=== PATIENT | female | born 1955 | race Caucasian/White ===

== ENCOUNTER 2022-05-18 15:45 | Emergency (ER) | payer MEDICARE, MEDICAID, SELFPAY ==
[2022-05-18 16:00] VITALS: BP 151/106; PULSE 103; O2SAT 94
[2022-05-18 16:04] VITALS: BP 151/106; PULSE 102; RESP 18; TEMP 36.6; O2SAT 93; BMI 81.8
--- NOTE | 2022-05-18 16:54 | CRLHL7_ITS ---
For Patients: As a result of the Century Cures Act, medical imaging exams and procedure reports are released immediately into your electronic medical record. You may view this report before your referring provider. If you have questions, please contact your health care provider. INDICATION: Agitation, altered mental status TECHNIQUE: CT head without contrast. COMPARISON: 05/08/[address] FINDINGS: No acute intracranial hemorrhage, mass effect, or evidence for acute infarction extensive encephalomalacia in the right MCA distribution. Overlying cranioplasty. Paranasal sinuses and mastoid air cells are clear. IMPRESSION: No acute intracranial findings. No change. Extensive right hemispheric encephalomalacia in the MCA distribution. Please note that all CT scans at this facility use dose modulation, iterative reconstruction, and/or weight-based dosing when appropriate to reduce radiation dose to as low as reasonably achievable. Dictated by Gee Danielson MD @ 05/18/2022 6:35:33 PM (Electronically Signed)
--- NOTE | 2022-05-18 17:01 | ED.GENADULT ---
HPI - General Adult General Time Seen by Provider: 17:00 Date Seen: 05/18/22 Chief complaint: Altered Mental Status Stated complaint: DELUSIONS,AGITATION,NOW LETHARGY Time Seen by Provider: 05/18/22 15:48 Source: family and other ( on-call physician) History of Present Illness HPI narrative: 66-year-old female resident of [facility] at [address] [place] [address] presents with a 1 month decline in health status. Starting about 1 month ago staff and daughter reported that she has had a decline. She seems to have more confusion and forgetfulness. There was reports of her being disoriented and possibly delirious. She has fluctuating moods with episodes of crying and yelling. She has functional decline. Previously she was able to walk to very limited extent then she was able to stand and transfer and that has been lost to the point where she now really is not able to do that either. She was able to feed herself relatively independently but no longer can do that. Is now requiring staff to feed her. She seems quite tired and sleepy on a continuous basis. 3 years ago she had a stroke following mitral valve surgery. The stroke affected her right hemisphere in cause left hemiparesis. She had rehabilitation after that and did regain some ability to walk. Late this winter, about 3 years after her stroke she started having seizures. These have been difficult to control and she has been having frequent seizures until the last 2 weeks. She has probably not had a seizure since about May 01. Seizures are manifested by rapid blinking of her eyes primarily. She is not obviously been ill recently. Neurologic and behavioral issues noted above beyond those she has not had a cold, cough, fever, complaints of chest or abdominal pain. She does regularly complain of leg pain and she has been diagnosed with lower extremity neuropathy. She has begun a taper of her gabapentin recently. She was on tramadol last week it was stopped possibly s rcently as 4 days ago. She was on oxybutynin for urinary incontinence and that was stopped about the same time. She has been provided with p.r.n. oxycodone but apparently has not been not getting it regularly. She had a head CT scan done recently which showed no acute stroke. Related Data Previous Rx's Medication Instructions Recorded quetiapine 25 mg tablet (Seroquel) 25 mg PO BID PRN #60 tab 07/04/22 Allergies Allergy/AdvReac Type Severity Reaction Status Date / Time heparin Allergy Unknown Verified 05/18/22 17:50 Sulfa (Sulfonamide Allergy Unknown Verified 05/18/22 17:50 Antibiotics) Review of Systems Narrative: Patient is unable to communicate. She does sign and we do have a director of product design as well as her daughter and who all sign for her. She gives minimal answers to questions today. Primarily she reports that both of her legs are hurting and that she is very tired. Review of systems otherwise very limited and otherwise negative. [facility] Medical History Anxiety Aspiration pneumonia Atrial fibrillation Chronic kidney disease, stage 3 COPD (chronic obstructive pulmonary disease) Depression Generalized weakness Heart failure Hemiparesis affecting left side as late effect of cerebrovascular accident Heparin induced thrombocytopenia Hyperlipidemia Microcytic anemia Mitral regurgitation Mitral stenosis Mixed stress and urge urinary incontinence Obesity Obstructive sleep apnea Pulmonary embolism Seizure disorder as sequela of cerebrovascular accident Type 2 diabetes mellitus Surgical History (Updated 05/18/22 @ 17:15 by Luis Camarillo MD) H/O mitral valve replacement History of cholecystectomy History of cranioplasty History of gastric bypass History of hysterectomy History of repair of rotator cuff S/P balloon mitral valvuloplasty Social History (Updated 05/18/22 @ 17:22 by Luis Camarillo MD) Narrative: She currently lives at [address] They provide all of her medications and all of her cares. She is now unable to stand and transfer on her own. She is a former history of smoking. She does not drink alcohol. Smoking Status: Former smoker What tobacco products do you use: cigarettes Smoking quit date/years: >15 years ago Do you use any of these nicotine containing products: None Second hand tobacco smoke exposure: No How often do you have a drink containing alcohol: never How often do you have six or more drinks on one occasion: Never AUDIT-C Alcohol total score: 0 Non-prescribed substance use: denies use Exam Narrative: Exam Narrative: She is sitting in a chair. She signs and read sign language from her family and from the deaf interpreter. Head is without acute trauma. Eyes are normal. Pupils are equal round reactive to light. Extraocular movements are limited. She does not follow my finger all the way into the left visual field gaze. She is unable to cooperate with visual field testing. There is no dysconjugate gaze noted. There is no facial asymmetry. She appears to have no marked weakness. Oropharynx with dry mucous membranes. Small airway. Tongue is midline. Neck is supple without mass or adenopathy. Respirations are clear to auscultation without wheezing, rales, rhonchi. Breathing is unlabored. Cardiovascular: S1, S2, regular rate and rhythm. No murmur gallop or rub. Abdomen: Bowel sounds active. Abdomen is soft without tenderness or mass. Upper extremities with right upper extremity having relatively normal function in strength and motion. No obvious rigidity, tremor, dysmetria or weakness. Left upper extremity is nonfunctional. She older side. She does not squeeze fingers on command or otherwise voluntarily move her left upper extremity. Right lower extremity appears normal. She moves it quite well. She indicates no pain with palpation. Inspection shows no evidence of trauma. There is no erythema. She has intact pedal pulses. Left lower extremity is in a AFO brace. This is removed and the foot is and leg are inspected. There was no sign of trauma or infection. She has an intact pedal pulses. She does not voluntarily move her left lower extremity at the knee or ankle. She has some rigidity and it is somewhat difficult to get her AFO brace back on as she has a tendency to plantar flex. She has upgoing toe on the left and equivocal on the right. Const: Vital Signs, click to edit/add: Vital Signs - 24 hr 05/18/22 16:00 05/18/22 16:04 05/18/22 17:30 Temperature 97.9 F Pulse Rate [Pulse Oximeter] 103 H 102 H 107 H Respiratory Rate 18 Blood Pressure [Ri ght Upper Arm] 151/106 H 151/106 H 193/77 H Pulse Oximetry 94 93 96 05/18/22 17:45 Temperature Pulse Rate [Pulse Oximeter] 104 H Respiratory Rate Blood Pressure [Ri ght Upper Arm] 177/70 H Pulse Oximetry 94 Documenting provider has reviewed patient's vital signs: yes Course Vital Signs Vital signs: Initial Vital Signs Pulse Rate 103 H 05/18/22 16:00 Blood Pressure 151/106 H 05/18/22 16:00 Blood Pressure Mean 121 05/18/22 16:00 Blood Pressure Position Supine 05/18/22 16:00 Pulse Oximetry 94 05/18/22 16:00 Oxygen Delivery Method 05/18/22 16:00 Vital Signs Pulse Rate 103 H 05/18/22 16:00 Blood Pressure 151/106 H 05/18/22 16:00 Pulse Oximetry 94 05/18/22 16:00 Temperature 97.9 F 05/18/22 16:04 Pulse Rate 104 H 05/18/22 17:45 Respiratory Rate 18 05/18/22 16:04 Blood Pressure 177/70 H 05/18/22 17:45 Pulse Oximetry 94 05/18/22 17:45 Medical Decision Making MDM Narrative Medical decision making narrative: I spent approximately 1 hour talking with the patient and her family about her current symptoms, her recent decline in mental status and functional status, her fluctuating episodes of agitation and tearfulness. I think this represents a syndrome of delirium associated with significant underlying neuro cognitive and neuropsychiatric problems. Patient is had a fairly large right hemisphere stroke remotely but has only had significant decline recently. Imaging today does not show a new stroke. I do think she has had the development of some dementia though it is hard to assess in the context of delirium. There is probably some contribution from her polypharmacy with a number of neuropsychiatric medications as well as recent discontinuation of medications particularly the discontinuation of her schedule tramadol which could be contributing some to her agitation. Notably her agitation has been present for a month and that change in medications took place 4 days ago. For a while she did settle down somewhat here after receiving Seroquel 25 mg and oxycodone 2.5 mg. I did discuss with the family that medications are likely not a pannus see a for what is going on but adjusting her medications might help her modestly control her symptoms. This likely would involve both decreasing and discontinuing medicines as well as possibly starting new medications. I also discussed with them how they are should be ongoing surveillance for new acute medical problems that could explain her change though I did not identify any acute illness or injury on evaluation today. I am afraid that the best that could be hoped for in this setting is a modest reduction in her physical and emotional distress without too many adverse side effects. Differential Diagnosis Differential Diagnosis: Lab Data Labs: Lab Results 05/18/22 05/18/22 05/18/22 Range/Units 16:30 16:30 16:30 WBC 8.79 (4.50-11.00) K/uL RBC 5.03 (4.00-5.20) m/uL Hgb 15.4 (12.0-16.0) gm/dL Hct 46.9 (33.0-51.0) % MCV 93 (80-100) fL MCH 31 (26-34) pg MCHC 33 (32-36) gm/dL RDW Coeff of Anuja 12.9 (11.5-15.5) % Plt Count 255 (140-440) K/uL Neut % (Auto) 70.2 (42.0-72.0) % Lymph % (Auto) 20.1 (20-44) % [place] % (Auto) 7.5 (0.0-11.0) % Eos % (Auto) 1.3 (0.0-7.0) % Baso % (Auto) 0.6 (0.0-3.0) % Neut # (Auto) 6.17 (1.7-7.0) K/uL Lymph # (Auto) 1.77 (0.90-2.90) K/uL [place] # (Auto) 0.70 (0.00-0.90) K/UL Eos # (Auto) 0.11 (0.00-0.50) K/uL Baso # (Auto) 0.05 (0.00-0.30) K/uL Abs Immat Gran (auto) 0.03 (0.00-0.30) K/uL Sodium 140 (135-149) mmol/L Potassium 4.7 (3.6-5.1) mmol/L Chloride 104 (96-114) mmol/L Carbon Dioxide 29 (20-32) mmol/L BUN 15 (7-30) mg/dL Creatinine 0.8 (0.5-1.5) mg/dL Estimated Creat Clear 39.75 Glucose 185 H (60-115) mg/dL Calcium 8.8 (8.4-10.6) mg/dL Total Bilirubin 0.5 (0.1-1.5) mg/dL AST 33 (12-35) U/L ALT 26 (4-35) U/L Alkaline Phosphatase 86 (40-150) U/L Troponin I 0.03 (0.01-0.04) ng/mL C-Reactive Protein 0.8 (0.5-1.0) mg/dL Total Protein 6.0 (6.0-8.3) g/dL Albumin 4.1 (3.3-5.0) g/dL TSH (0.270-4.20) uIU/mL 05/18/22 Range/Units 16:30 WBC (4.50-11.00) K/uL RBC (4.00-5.20) m/uL Hgb (12.0-16.0) gm/dL Hct (33.0-51.0) % MCV (80-100) fL MCH (26-34) pg MCHC (32-36) gm/dL RDW Coeff of Anuja (11.5-15.5) % Plt Count (140-440) K/uL Neut % (Auto) (42.0-72.0) % Lymph % (Auto) (20-44) % [place] % (Auto) (0.0-11.0) % Eos % (Auto) (0.0-7.0) % Baso % (Auto) (0.0-3.0) % Neut # (Auto) (1.7-7.0) K/uL Lymph # (Auto) (0.90-2.90) K/uL [place] # (Auto) (0.00-0.90) K/UL Eos # (Auto) (0.00-0.50) K/uL Baso # (Auto) (0.00-0.30) K/uL Abs Immat Gran (auto) (0.00-0.30) K/uL Sodium (135-149) mmol/L Potassium (3.6-5.1) mmol/L Chloride (96-114) mmol/L Carbon Dioxide (20-32) mmol/L BUN (7-30) mg/dL Creatinine (0.5-1.5) mg/dL Estimated Creat Clear Glucose (60-115) mg/dL Calcium (8.4-10.6) mg/dL Total Bilirubin (0.1-1.5) mg/dL AST (12-35) U/L ALT (4-35) U/L Alkaline Phosphatase (40-150) U/L Troponin I (0.01-0.04) ng/mL C-Reactive Protein (0.5-1.0) mg/dL Total Protein (6.0-8.3) g/dL Albumin (3.3-5.0) g/dL TSH 2.280 (0.270-4.20) uIU/mL Discharge Plan Discharge Clinical Impression: Delirium due to general medical condition, Dementia Additional Instructions: contact her provider tomorrow to discuss medication adjustments to improve her quality of life Prescriptions: New quetiapine [Seroquel] 25 mg tablet 25 mg PO BID PRN (Reason: severe agitation) Qty: 60 0RF Follow Up/Referrals: Provider,Not a Local [Primary Care Provider] -
[2022-05-18 17:09] LABS: Basophils Absolute Auto 0.05 K/uL (0.00-0.30); Basophils Percent Auto 0.6 % (0.0-3.0); Eosinophils Absolute Auto 0.11 K/uL (0.00-0.50); Eosinophils Percent Auto 1.3 % (0.0-7.0); Hematocrit 46.9 % (33.0-51.0); Hemoglobin* 15.4 gm/dL (12.0-16.0); Immature Granulocytes Abs Auto 0.03 K/uL (0.00-0.30); Lymphocytes Absolute Auto 1.77 K/uL (0.90-2.90); Lymphocytes Percent Auto 20.1 % (20-44); Mean Corpuscular HGB Conc 33 gm/dL (32-36); Mean Corpuscular Hemoglobin 31 pg (26-34); Mean Corpuscular Volume 93 fL (80-100); Monocytes Percent Auto 7.5 % (0.0-11.0); Neutrophils Absolute Auto 6.17 K/uL (1.7-7.0); Neutrophils Percent Auto 70.2 % (42.0-72.0); Platelet Count* 255 K/uL (140-440); RDW Coefficient of Variation % 12.9 % (11.5-15.5); Red Blood Count 5.03 m/uL (4.00-5.20); White Blood Count* 8.79 K/uL (4.50-11.00)
[2022-05-18 17:11] LABS: Slide Review Reflex No
[2022-05-18 17:24] LABS: Albumin* 4.1 g/dL (3.3-5.0); Chloride* 104 mmol/L (96-114); Sodium* 140 mmol/L (135-149)
[2022-05-18 17:25] LABS: Potassium* 4.7 mmol/L (3.6-5.1)
[2022-05-18 17:26] LABS: Creatinine* 0.8 mg/dL (0.5-1.5); Est. Creatinine Clearance* 39.75; Estimated Glomerular Filt Rate 81.21
[2022-05-18 17:27] LABS: Alanine Aminotransferase* 26 U/L (4-35); Alkaline Phosphatase* 86 U/L (40-150); Aspartate Amino Transferase* 33 U/L (12-35); Bilirubin Total* 0.5 mg/dL (0.1-1.5); Blood Urea Nitrogen* 15 mg/dL (7-30); Carbon Dioxide* 29 mmol/L (20-32)
[2022-05-18 17:28] LABS: Calcium* 8.8 mg/dL (8.4-10.6); Glucose* 185 mg/dL (60-115)
[2022-05-18 17:30] VITALS: BP 193/77; PULSE 107; O2SAT 96
[2022-05-18 17:30] LABS: C Reactive Protein* 0.8 mg/dL (0.5-1.0)
[2022-05-18] MEDS: OXYCODONE 1 MG/ML ORAL SOLN 2.5 MG PO (17:33)
[2022-05-18 17:34] LABS: Troponin I* 0.03 ng/mL (0.01-0.04)
[2022-05-18] MEDS: QUETIAPINE 25 MG TABLET PO (17:37)
[2022-05-18 17:45] VITALS: BP 177/70; PULSE 104; O2SAT 94
--- NOTE | 2022-05-18 20:02 | ED.NURSE ---
Called [facility], report given to RN and informed pt would be returning by private vehicle.
--- NOTE | 2022-05-18 20:03 | ED.NURSE ---
DC instructions given to pt family members, paint pourer used.
== END 2022-05-18 20:02 ==
LOC: ED 18:23
PROVIDERS: Emergency Provider Family Medicine
DX: F03.90 Unspecified dementia, unspecified severity, without behavioral disturbance, psychotic disturbance, mood disturbance, and anxiety (principal); F05 Delirium due to known physiological condition
CPT/HCPCS: 36415; 70450; 80053; 81003; 84443; 84484; 85025; 86140; 99284; 99285; A9270

== ENCOUNTER 2022-05-26 20:09 | Outpatient (CLI) | payer MEDICARE, MEDICAID, SELFPAY | END 2022-05-26 20:10 | disposition home or self-care (01) | LOC: AMB 06-30 10:12 | PROVIDERS: Visit Provider Family Medicine | DX: I46.9 Cardiac arrest, cause unspecified (principal) ==